=== PATIENT | male | born 1980 | race Two or more races ===

== ENCOUNTER 2023-11-09 14:23 | Emergency (ER) | payer BC ==
[2023-11-09] MEDS: SODIUM CHLORIDE 0.9% 500 ML INFUS.BAG IV ONE (15:50)
[2023-11-09 15:58] LABS: BASO % 0.4 % (0-2.0); EOS % 0.9 % (0-4.5); HEMATOCRIT 48.4 % (35.4-49); HEMOGLOBIN 16.4 GM/dL (11.7-16.9); LYMPH % 28.9 % (8-40); MCH 31.3 pg (25.7-33.7); MCHC 33.8 g/dl (32.0-35.9); MEAN CELL VOLUME 92.8 fl (80-96); MONO % 9.1 % (3.8-10.2); NEUT % 60.7 % (42.8-82.8); PLATELET COUNT 213 10^3/uL (134-434); RBC 5.22 M/mm3 (4.00-5.60); RDW 13.3 % (11.9-15.9); WHITE BLOOD COUNT 8.4 K/mm3 (4.0-10.0)
[2023-11-09 16:18] LABS: CHLORIDE 105 mmol/L (98-107); POTASSIUM 4.5 mmol/L (3.5-5.1); SODIUM 138 mmol/L (136-145)
[2023-11-09 16:21] LABS: CALCIUM 9.7 mg/dL (8.5-10.1)
[2023-11-09 16:22] LABS: ALBUMIN 4.3 g/dl (3.4-5.0); ANION GAP 6 mmol/L (4-13); BLOOD UREA NITROGEN 11.2 mg/dL (7-18); CO2 28 mmol/L (21-32); GLUCOSE,RANDOM 134 mg/dL (74-106)
[2023-11-09 16:25] LABS: CREATININE 0.9 mg/dL (0.55-1.3); SGOT/AST 55 U/L (15-37); SGPT/ALT 61 U/L (13-61)
[2023-11-09 16:26] LABS: BILIRUBIN,TOTAL 0.8 mg/dL (0.2-1); N-TERMINAL BNP 11.3 pg/ml (5-125); TOT PROT 8.5 g/dl (6.4-8.2)
[2023-11-09 16:27] LABS: ALK PHOS 95 U/L (45-117)
[2023-11-09 18:43] VITALS: BP 147/96; PULSE 90; RESP 19; TEMP 98.4
== END 2023-11-09 18:44 | disposition home or self-care (01) ==
LOC: JER 14:23
DX: R51.9 Headache, unspecified (principal); R11.0 Nausea; R53.1 Weakness; R05.9 Cough, unspecified; R42 Dizziness and giddiness; Z20.822 Contact with and (suspected) exposure to COVID-19
CPT/HCPCS: 0241U-QW; 36415; 71046-TC-FY; 80053; 80307; 82550; 83880; 84484; 85025; 93005; 93010; 99285-25